=== PATIENT | male | born 1960 | race Caucasian/White ===

== ENCOUNTER 2019-07-20 11:28 | Outpatient (REF) | payer MEDICAID, SELFPAY ==
[2019-07-20 20:25] LABS: HCT 47.2 % (40.0-50.0); HGB 15.8 g/dL (13.5-17.5); Mean Corp. HGB Concentration 33.5 g/dL (32.0-36.0); Mean Corpuscular Hemoglobin 31.8 pg (27.0-33.0); Mean Platelet Volume 9.4 fL (8.0-11.0); Platelet Count 225 x1000/uL (130-400); RBC 4.97 m/cumm (4.50-6.00); RBC Distribution Width 13.2 % (11.8-14.1)
[2019-07-20 20:35] LABS: Calculated LDL 115 mg/dL; Cholesterol 205 mg/dL (50-200); HDL Cholesterol 35 mg/dL (40-60); Triglyceride 276 mg/dL (30-150)
[2019-07-20 22:54] LABS: ALT 25 U/L (16-63); AST 15 U/L (15-37); Alkaline Phosphatase 57 U/L (46-116); Anion Gap 8.7 mmol/L (3-11); BUN 17 mg/dL (7-18); Bilirubin, Total 0.4 mg/dL (0.2-1.0); CO2 30.3 mmol/L (21.0-32.0); CREATININE 1.19 mg/dL (0.70-1.30); Calcium 9.3 mg/dL (8.5-10.1); Chloride 102 mmol/L (98-107); Glucose 91 mg/dL (70-100); Potassium 5.1 mmol/L (3.5-5.1); Sodium 141 mmol/L (136-145); Total Protein 7.6 g/dL (6.4-8.2)
== END 2019-07-20 11:48 ==
LOC: NCHCN 11:28
PROVIDERS: PCP Specialist/Technologist Athletic Trainer; Visit Provider Specialist/Technologist Athletic Trainer
DX: Z02.89 Encounter for other administrative examinations (principal)
CPT/HCPCS: 80053; 80061; 85027; 83735

== ENCOUNTER 2020-02-16 11:06 | Outpatient (REF) | payer MEDICAID, SELFPAY ==
[2020-02-16 19:35] LABS: Calculated LDL 59 mg/dL (<100); Cholesterol 144 mg/dL (<200); HDL Cholesterol 46 mg/dL (40-60); Triglyceride 196 mg/dL (<150)
== END 2020-02-16 11:26 ==
LOC: NCHCN 11:06
PROVIDERS: PCP Specialist/Technologist Athletic Trainer; Visit Provider Nurse Practitioner Family
DX: E78.5 Hyperlipidemia, unspecified (principal)
CPT/HCPCS: 80061

== ENCOUNTER 2021-07-14 09:36 | Outpatient (REF) | payer MEDICAID, SELFPAY ==
[2021-07-14 16:35] LABS: ALT 30 U/L (16-63); AST 14 U/L (15-37); Albumin 3.8 g/dL (3.4-5.0); Alkaline Phosphatase 46 U/L (46-116); Anion Gap 5.4 mmol/L (3-11); BUN 18 mg/dL (7-18); Bilirubin, Total 0.6 mg/dL (0.2-1.0); CO2 32.6 mmol/L (21.0-32.0); Calcium 8.9 mg/dL (8.5-10.1); Calculated LDL 97 mg/dL (<100); Chloride 102 mmol/L (98-107); Cholesterol 168 mg/dL (<200); Glucose 114 mg/dL (74-106); HDL Cholesterol 46 mg/dL (40-60); Potassium 4.6 mmol/L (3.5-5.1); Sodium 140 mmol/L (136-145); Total Protein 7.1 g/dL (6.4-8.2); Triglyceride 127 mg/dL (<150)
== END 2021-07-14 09:37 | disposition home or self-care (01) ==
LOC: NCHCN 09:36
PROVIDERS: PCP Specialist/Technologist Athletic Trainer; Visit Provider Nurse Practitioner Family
DX: E78.5 Hyperlipidemia, unspecified (principal); I42.0 Dilated cardiomyopathy; G89.29 Other chronic pain
CPT/HCPCS: 80053; 80061

== ENCOUNTER 2022-10-26 17:39 | Outpatient (REF) | payer MEDICAID, SELFPAY | END 2022-10-26 17:40 | disposition home or self-care (01) | LOC: NCHCN 17:39 | PROVIDERS: PCP Specialist/Technologist Athletic Trainer; Visit Provider Nurse Practitioner Family | DX: L03.116 Cellulitis of left lower limb (principal) | CPT/HCPCS: 87070; 87205 ==

== ENCOUNTER 2023-05-26 11:49 | Outpatient (REF) | payer MEDICAID, SELFPAY ==
[2023-05-26 17:13] LABS: Hemoglobin A1C 5.8 % (<5.7)
== END 2023-05-26 11:50 | disposition home or self-care (01) ==
LOC: NCHCN 11:49
PROVIDERS: PCP Specialist/Technologist Athletic Trainer; Visit Provider Nurse Practitioner Family
DX: Z83.3 Family history of diabetes mellitus (principal); R73.09 Other abnormal glucose
CPT/HCPCS: 83036

== ENCOUNTER 2025-01-30 11:51 | Outpatient (REF) | payer MEDICARE, MEDICAID, SELFPAY ==
[2025-01-30 16:57] LABS: *AMPHETAMINES SCREEN URINE Negative (Negative); *BARBITURATES SCREEN URINE Negative (Negative); *BENZODIAZEPINES SCREEN URINE Negative (Negative); Cannabinoids THC Negative (Negative); Cocaine Screen,Urine Negative (Negative); METHADONE URINE SCREEN Negative (Negative); OPIATES URINE SCREEN Positive (Negative)
[2025-01-30 16:58] LABS: Tricyclic Antidepressants Negative (Negative)
== END 2025-01-30 11:52 | disposition home or self-care (01) ==
LOC: NCHCN 11:51
PROVIDERS: PCP Specialist/Technologist Athletic Trainer; Visit Provider Family Medicine
DX: F11.20 Opioid dependence, uncomplicated (principal); Z79.899 Other long term (current) drug therapy
CPT/HCPCS: 80307

== ENCOUNTER 2025-04-02 18:19 | Outpatient (REF) | payer MEDICARE, MEDICAID, SELFPAY ==
[2025-04-02 22:12] LABS: Cannabinoids THC Negative (Negative); METHADONE URINE SCREEN Negative (Negative)
== END 2025-04-02 18:20 | disposition home or self-care (01) ==
LOC: NCHCN 18:19
PROVIDERS: PCP Specialist/Technologist Athletic Trainer; Visit Provider Nurse Practitioner Family
DX: G89.29 Other chronic pain (principal); Z79.899 Other long term (current) drug therapy
CPT/HCPCS: 80307

== ENCOUNTER 2025-05-04 17:22 | Outpatient (REF) | payer MEDICARE, MEDICAID, SELFPAY ==
[2025-05-11 12:26] LABS: Noroxycodone-by LC-MS/MS Negative ng/mL (Cutoff: 25); Noroxymorphone-by LC-MS/MS Negative ng/mL (Cutoff: 25); Oxycodone-by LC-MS/MS Negative ng/mL (Cutoff: 25); Oxymorphone-by LC-MS/MS Negative ng/mL (Cutoff: 25)
== END 2025-05-04 17:23 | disposition home or self-care (01) ==
LOC: NCHCN 17:22
PROVIDERS: PCP Specialist/Technologist Athletic Trainer; Visit Provider Nurse Practitioner Family
DX: G89.29 Other chronic pain (principal); Z79.899 Other long term (current) drug therapy
CPT/HCPCS: 80365

== ENCOUNTER 2025-08-13 13:22 | Outpatient (REF) | payer MEDICARE, MEDICAID, SELFPAY | END 2025-08-13 13:23 | disposition home or self-care (01) | LOC: NCHCN 13:22 | PROVIDERS: PCP Specialist/Technologist Athletic Trainer; Visit Provider Nurse Practitioner Family | DX: Z79.891 Long term (current) use of opiate analgesic (principal) | CPT/HCPCS: 80361; 80362; 80365 ==